=== PATIENT | female | born 1995 | race American Indian/Alaskan Native ===

== ENCOUNTER 2017-12-29 18:14 | Emergency (ER) | payer SELFPAY ==
[2017-12-29 18:23] VITALS: BP 112/75; PULSE 77; RESP 16; TEMP 98.3; O2SAT 97
[2017-12-29] MEDS ORDERED: Albuterol-Ipratrop 3 mg / 0.5 (3 ml) UD INH STA (18:55)
[2017-12-29] MEDS ORDERED: Albuterol-Ipratrop 3 mg / 0.5 (3 ml) UD ONE (19:04)
--- NOTE | 2017-12-29 21:06 | ED PDOC ---
HPI: SOB/CHF/COPD Time Seen by Provider: 12/29/17 18:43 Chief Complaint (Nursing): Cough, Cold, Congestion Chief Complaint (Provider): Cough, Cold, Congestion History Per: Patient History/Exam Limitations: no limitations Onset/Duration Of Symptoms: Persistent (x3 weeks) Current Symptoms Are (Timing): Still Present Initiating Event: Other (seasonal allergies) Associated Symptoms: denies: Fever, Chills, Sweating, Chest Pain, Bloody Cough, Productive Cough, Heart Racing, Leg/Calf Pain, Ankle/Leg Swelling, Dizziness, Light-headedness, Anxiety, Tingling In Hands Or Face, Musle Spasms In Hands Or Feet Additional History Per: Patient Additional Complaint(s): 22 year old female with pmHx of asthma presents to the ED with complaints of shortness of breath associated with cough and wheezing for the last 3 weeks. Pt states this is similar to her prior asthma exacerbations that often begin when her seasonal allergies flare up. She has been using her albuterol inhaler without relief, needs a refill. She has never been hospitalized or intubated for her asthma. Denies fever, chills, chest pain, sore throat, eye pain, headache, sputum, N/V, abdominal pain. PMD: none provided Past Medical History Reviewed: Historical Data, Nursing Documentation, Vital Signs Vital Signs: Last Vital Signs Temp 98.3 F 12/29/17 18:19 Pulse 77 12/29/17 18:19 Resp 16 12/29/17 18:19 BP 112/75 12/29/17 18:19 Pulse Ox 97 12/29/17 18:19 - Medical History PMH: Asthma, Bronchitis (history), Pneumonia (history) - Family History Family History: States: Unknown Family Hx - Immunization History Hx Influenza Vaccination: No Hx Pneumococcal Vaccination: No - Home Medications Home Medications: Ambulatory Orders Medication Instructions Recorded Ondansetron ODT [Zofran ODT] 1 odt PO BID PRN #6 odt 05/17/15 Albuterol 0.083% [Albuterol 0.083% 3 ml IH Q6 #1 neb 05/28/15 Inhal Sujata (2.5 mg/3 ml) UD] Albuterol Sulfate [Proventil Hfa] 0.09 mg IH Q6 #1 ml 05/28/15 Fluticasone/Salmeterol 250/50 1 puff IH Q12 #1 puff 05/28/15 [Advair Diskus] Ciprofloxacin 0.3% [Ciloxan 0.3% 1 drop RIGHTEYE QID #1 bottle 11/23/15 Ophth SOLN] Dextran 70/Hypromellose 1 drop RIGHTEYE QID PRN #1 bottle 11/23/15 [Artificial Tears Eye Drops] Albuterol HFA [Ventolin HFA 90 2 puff IH Q6H PRN #60 puff 12/29/17 mcg/actuation (8 g)] Fluticasone Nasal [Flonase] 2 actuation NS DAILY #120 spr 12/29/17 predniSONE [predniSONE Tab] 40 mg PO DAILY 4 Days #8 tab 12/29/17 - Allergies Allergies/Adverse Reactions: Allergies Allergy/AdvReac Type Severity Reaction Status Date / Time No Known Allergies Allergy Verified 12/29/17 18:19 Wells Criteria for PE - Wells Criteria for Pulmonary Embolism Clinical Signs and Symptoms of DVT: No P.E is #1 Diagnosis, or Equally Likely: No Heart Rate >100: No Immobilization at least 3 days;Surgery previous 4 weeks: No Previous, objectively diagnosed PE or DVT: No Hemoptysis: No Malignancy w/treatment within 6 months, or palliative: No Total Score: 0 Review of Systems ROS Statement: Except As Marked, All Systems Reviewed And Found Negative Constitutional: Negative for: Fever, Chills Eyes: Negative for: Vision Change ENT: Negative for: Ear Pain, Ear Discharge, Nose Pain, Nose Discharge, Nose Congestion, Mouth Pain, Mouth Swelling, Throat Pain, Throat Swelling Cardiovascular: Negative for: Chest Pain, Palpitations, Light Headedness Respiratory: Positive for: Cough, Shortness of Breath, Wheezing. Negative for: Hemoptysis, SOB with Exertion, Sputum Gastrointestinal: Negative for: Nausea, Vomiting, Abdominal Pain Musculoskeletal: Negative for: Neck Pain, Shoulder Pain, Arm Pain, Back Pain Skin: Negative for: Rash, Bruising Neurological: Negative for: Weakness, Numbness, Headache, Dizziness Physical Exam - Reviewed Nursing Documentation Reviewed: Yes Vital Signs Reviewed: Yes - Physical Exam Appears: Positive for: Well, Non-toxic, No Acute Distress Head Exam: Positive for: ATRAUMATIC, NORMAL INSPECTION, NORMOCEPHALIC Skin: Positive for: Normal Color, Warm, DRY Eye Exam: Positive for: EOMI, Normal appearance, PERRL ENT: Positive for: Pharynx Is (non-erythematous), TM Is/Are (non-erythematous; non-bulging; fluid behind both TMs). Negative for: Sinus Pain/Drainage, Nasal Congestion Neck: Positive for: Normal, Painless ROM Cardiovascular/Chest: Positive for: Regular Rate, Rhythm Respiratory: Positive for: Decreased Breath Sounds (bilaterally), Wheezing (expiratory bilaterally throughout all lung yu). Negative for: Accessory Muscle Use, Rhonchi, Respiratory Distress Pulses-Radial (L): 2+ Pulses-Radial (R): 2+ Back: Positive for: Normal Inspection Extremity: Positive for: Normal ROM. Negative for: Tenderness Lymphatic: Positive for: Normal Exam. Negative for: Adenopathy Neurologic/Psych: Positive for: Alert, Oriented, Gait (steady). Negative for: Motor/Sensory Deficits - Laboratory Results Urine POC: Negative - ECG O2 Sat by Pulse Oximetry: 97 (RA) Pulse Ox Interpretation: Normal Nebulizer Treatments/Peak Flow - Duonebs Number of Bronchodilator Doses given?: 3 - Pre/Post Peak Flow Pre Treatment Peak Flow: 250 Post treatment Peak Flow: 450 - Steroid Treatment Steroid: Oral - Clinical Response Clinical Response: Improved Medical Decision Making Medical Decision Making: Time: 1854 Initial Plan: * Duoneb 9ml INH * Prednisone 60mg PO * Pre and post peak flows Peak flow increased from 250 to 450 after 3 Duonebs and steroids. Pt states she feels much better. Lungs completely clear to auscultation bilaterally. In triage, pt said to have cough productive of thick yellow sputum. However during my pt interview, pt denies these symptoms. Pt counseled on use of flonase and claritin for season allergies. Pt counseled on use of medications. She agrees and showed understanding of discussion. Pt stable for discharge. Impression: Asthma Exacerbation Plan: * prednisone * flonase * ventolin inhaler * PMD followup * Return for new/worsening symptoms ----- Scribe Attestation: Documented by Fatmata Mahajan, acting as a scribe for Shannon Irizarry PA-C. Provider Scribe Attestation: All medical record entries made by the Scribe were at my direction and personally dictated by me. I have reviewed the chart and agree that the record accurately reflects my personal performance of the history, physical exam, medical decision making, and the department course for this patient. I have also personally directed, reviewed, and agree with the discharge instructions and disposition Disposition - Clinical Impression Clinical Impression: Asthma exacerbation - Patient ED Disposition Is Patient to be Admitted: No Counseled Patient/Family Regarding: Diagnosis, Need For Followup, Rx Given - Disposition Referrals: [facility] [Outside] Disposition: Routine/Home Disposition Time: 21:30 Condition: IMPROVED Additional Instructions: Take 2 pills prednisone once daily for 4 days Take flonase 2 sprays per nostril every morning Take albuterol inhaler 2 puffs every 6 hours as needed for cough Take claritin every morning, OTC Followup with primary doctor within 2 days Return to ER for any new or worsening symptoms Prescriptions: Albuterol HFA [Ventolin HFA 90 mcg/actuation (8 g)] 2 puff IH Q6H PRN #60 puff PRN Reason: asthma Fluticasone Nasal [Flonase] 2 actuation NS DAILY #120 spr predniSONE [predniSONE Tab] 40 mg PO DAILY 4 Days #8 tab Instructions: Asthma, Adult (DC) Forms: [facility] (Georgian), [facility] ED School/Work Excuse
== END 2017-12-29 21:46 | disposition home or self-care (01) ==
LOC: H.ER 18:14
DX: J45.901 Unspecified asthma with (acute) exacerbation (principal)